=== PATIENT | male | born 1940 | race Caucasian/White ===

== ENCOUNTER → 2016-09-11 | Outpatient (CLI) | payer OTHER ==
[~2016-09-11] MED LIST: ALLOPURINOL PO; AMLODIPINE-BEN1 EAC5 PO; ASPIRIN PO; AUGMENTIN PO; CERTAGEN PO; CLONIDINE PO; FLOMAX0.4 M1 PO; GABAPENTIN PO; HCTZ PO; LOTREL 10/20 MG1 CAP PO; METFORMIN PO; NAPROXEN PO; PERCOCET5/325 PO; PLAVIX300 MG PO; PREVACID PO; PREVACID15 M1 PO; TOPROL XL PO; VITAMIN D31000 UNI1 PO; ZYLOPRIM PO
--- NOTE | ~2016-09-11 | US136 ---
[facility] A Service of [facility] RADIOLOGY TEXT RESULTS PATIENT: SHERINE NEVAREZ LOCATION: CNIV : 39 UNIT #: [id number] AGE: [address]: Jesus Chun MD SEX: M ORDER DR: [id number] [facility] [address] [place], [place] [address] [id number] O MR#: [id number] Acc #: [id number] NAME: SHERINE NEVAREZ : 1940 SEX: M STUDY DATE/TIME: 09/11/2016 10:20 UNIT: CNIV ROOM: STUDY DESCRIPTION: U/L [facility] Art Study [place] Attending Physician: Jesus Chun M.D. Ordering Physician: Jesus Chun M.D. Primary Care Physician: Jesus Chun M.D. MEDICAL IMAGING REPORT This report is preliminary unless electronic signature is present EXAM Ankle-brachial indices INDICATION 76-year-old male with type 2 diabetes. History of hypertension and bilateral lower extremity claudication for 4 months. Numbness and tingling. FINDINGS The brachial pressure is 144. The right ankle pressure is 161 and the left ankle pressure is 155. The right LISANDRO is 1.12 and the left LSIANDRO is 1.08. The toe-brachial indices are 0.81. IMPRESSION 1. Normal ankle-brachial indices. 2. Slightly decreased toe-brachial indices which may indicate small vessel disease in the feet. Dictated by... Biju Dela Cruz M.D. THIS IS AN ELECTRONICALLY VERIFIED REPORT Biju Dela Cruz M.D. at 09/12/2016 9:03 AM MARGOT/russell TD: 09/11/2016 12:18 JOB #: [id number] MEDICAL IMAGING REPORT Page 1 of 1 COPY
== END | disposition home or self-care (01) ==
LOC: CNIV 10:07
DX: E11.42 Type 2 diabetes mellitus with diabetic polyneuropathy (principal); I73.9 Peripheral vascular disease, unspecified; M79.606 Pain in leg, unspecified
CPT/HCPCS: 93922

== ENCOUNTER 2017-02-16 08:31 | Emergency (ER) | payer OTHER ==
[~2017-02-16] VITALS: Ht 170.2 cm; Wt 95.2 kg
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
[~2017-02-16 08:31] MED LIST changes: -ALLOPURINOL PO; -GABAPENTIN PO; -METFORMIN PO
[2017-02-16] MEDS ORDERED: ALLOPURINOL PO (09:17)
[2017-02-16] MEDS ORDERED: METFORMIN PO (09:17)
[2017-02-16] MEDS ORDERED: GABAPENTIN PO (09:18)
== END 2017-02-16 09:52 | disposition home or self-care (01) ==
LOC: SED 08:31
DX: S06.0X9A Concussion with loss of consciousness of unspecified duration, initial encounter (principal); S01.81XA Laceration without foreign body of other part of head, initial encounter; I10 Essential (primary) hypertension; Z79.899 Other long term (current) drug therapy; Z23 Encounter for immunization; W31.89XA Contact with other specified machinery, initial encounter; Y93.89 Activity, other specified; Y92.69 Other specified industrial and construction area as the place of occurrence of the external cause; Y99.0 Civilian activity done for income or pay
CPT/HCPCS: 12013; 70450; 90471; 90715; 99283